=== PATIENT | female | born 1995 | race Caucasian/White ===

== ENCOUNTER 2016-11-03 19:18 | Inpatient (IN) | payer MEDICAID, OTHER ==
[~2016-11-03] VITALS: Ht 157.5 cm; Wt 71.2 kg
[2016-11-03] MEDS ORDERED: MINERAL OIL CONCENTRATE 99.9% 15 ML UDC TOP PRN (19:45)
[2016-11-03] MEDS ORDERED: LACTATED RINGERS 1,000 ML IV SCH (19:45)
[2016-11-03 20:00] VITALS: BP 125/64
[2016-11-03] MEDS: D5 LR IV SOLUTION 1,000 ML IV SCH (20:00)
[2016-11-03] MEDS ORDERED: MISOPROSTOL 100 MCG (CYTOTEC) TAB PO ONE (20:00)
[2016-11-03 20:17] LABS: BASOPHILS % (AUTO) 0 % (0-10); EOSINOPHILS # (AUTO) 0.1 10^3/uL (0.0-0.3); EOSINOPHILS % (AUTO) 1 % (0-10); LYMPHOCYTES # (AUTO) 1.7 X 10^3 (1.0-4.0); LYMPHOCYTES % (AUTO) 16 % (12-44); MEAN CORPUSCULAR HEMOGLOBIN 30 PG (25-34); MEAN CORPUSCULAR HGB CONC 35 G/DL (32-36); MEAN CORPUSCULAR VOLUME 87 FL (80-99); MEAN PLATELET VOLUME 12.2 FL (7.4-10.4); MONOCYTES # (AUTO) 0.9 X 10^3 (0.0-1.0); MONOCYTES % (AUTO) 8 % (0-12); NEUTROPHILS # (AUTO) 8.4 X 10^3 (1.8-7.8); NEUTROPHILS % (AUTO) 76 % (42-75); PLATELET COUNT 225 10^3/uL (130-400); RED BLOOD COUNT 3.73 10^6/uL (4.35-5.85); RED CELL DISTRIBUTION WIDTH 12.6 % (10.0-14.5); WHITE BLOOD COUNT 11.1 10^3/uL (4.3-11.0)
[2016-11-03 20:19] LABS: BILIRUBIN,URINE NEGATIVE (NEGATIVE); KETONES,URINE NEGATIVE (NEGATIVE); LEUKOCYTE ESTERASE ,URINE NEGATIVE (NEGATIVE); NITRITE,URINE NEGATIVE (NEGATIVE); PH,URINE 6.5 (5-9); PROTEIN,URINE NEGATIVE (NEGATIVE); UROBILINOGEN,URINE NORMAL (NORMAL)
[2016-11-03] MEDS ORDERED: PREN-142 PO (20:30)
[2016-11-03] MEDS: CATHETER FLUSH 10 ML SYR IV SCH (22:41)
[2016-11-04] VITALS (54 sets, daily range): BP systolic 94–148; BP diastolic 51–98
[2016-11-04] MEDS ORDERED: MISOPROSTOL 100 MCG (CYTOTEC) TAB PO ONE
[2016-11-04] MEDS ORDERED: HYDROmorphone (DILAUDID) 2 MG/ML VIAL ONE
[2016-11-04] MEDS ORDERED: HYDROmorphone (DILAUDID) 2 MG/ML VIAL IVP PRN (00:15)
[2016-11-04] MEDS: D5 LR IV SOLUTION 1,000 ML IV SCH ×2 (02:57→09:17)
[2016-11-04] MEDS ORDERED: SUFENTA 0.6MCG/ML BUPIVA 0.125 100 ML ONE (04:33)
[2016-11-04] MEDS ORDERED: fentaNYL INJECTION 100 MCG/2 ML AMP ONE (05:13)
[2016-11-04] MEDS ORDERED: BUPIVACAINE 0.25% 30 ML (SENSORCAINE) VIAL ONE (05:13)
[2016-11-04] MEDS ORDERED: LACTATED RINGERS 1,000 ML IV SCH (05:52)
[2016-11-04] MEDS ORDERED: EPIDURAL (SUFENTA 0.6MCG/ML BUPIVA 0.125%) 100 ML BAG EPI PRN (06:00)
[2016-11-04] MEDS ORDERED: diphenhydrAMINE 50 MG/ML INJ (BENADRYL) IV PRN (06:00)
[2016-11-04] MEDS ORDERED: METOCLOPRAMIDE INJ 10 MG/2 ML (REGLAN) IV PRN (06:00)
[2016-11-04] MEDS ORDERED: NALOXONE 0.4 MG/ML 1 ML (NARCAN) VIAL IV PRN ×2 (06:00)
[2016-11-04] MEDS ORDERED: OXYTOCIN/NORMAL SALINE 500 ML IV ONE (07:45)
[2016-11-04] MEDS: ONDANSETRON 4 MG/2 ML (SDV) Z0FRAN IV PRN ×2 (07:52→07:55)
--- NOTE | 2016-11-04 08:59 | History & Physical-OB ---
OB - Chief Complaint & HPI Date/Time Date of Admission: Date of Admission: Nov 03, 2016 at 7:25 pm Time Seen by Provider: 07:30 Chief Complaint/History OB-Reason for Admission/Chief: Induction of Labor Hx : 1 Hx Para: 0 Expected Date of Delivery: Nov 02, 2016 Gestational Age in Weeks: 40 Indication for induction: post dates Admission Nurse Assessment Rev: Yes History of Labs O pos Antibody neg RI RPR NR HBsAg NR HCsAg NR HIV NR GC neg GBS neg Allergies and Home Medications Allergies Coded Allergies: Penicillins (Verified Allergy, Unknown, 11/03/16) Had allergic reaction as a child Home Medications Vit No.124/Iron/FA 1 Each Tablet, 1 EACH PO DAILY, (Reported) OB - History Hx of Present Care: Yes Ultrasounds: Normal mid trimester US Obstetrical Complications: None Medical Complications: None Delivery History Adverse Rxn to Tranfusion: No Patient Past Medical History none Social History/Family History HIV/AIDS: No Recent Infectious Disease Expo: No Sexually Transmitted Disease: No Alcohol Use: Denies Use Recreational Drug Use: No OB - Admission Exam Physical Exam Date Seen by Provider: Nov 04, 2016 Time Seen by Provider: 07:30 Vitals: Vital Signs 11/04/16 11/04/16 11/04/16 03:30 05:38 06:46 Temp 99.0 Pulse 121 Resp 18 B/P (MAP) 127/88 Pulse Ox 99 HEENT: NCAT Heart: Rhythm Normal Lungs: Clear Abdomen: Gravid Extremities: Normal Reflexes: Normal Cervical Dilatation: 1cm Effacement: 75% Station: -1 Heart Rate: 130's Accelerations: Accelerations Present Decelerations: No Decelerations Short Term Variability: Present Care Home Variability: Minimal (3-5) Contractions on Admission: 6-10 Minutes Apart Intensity: Mild Veronica Scoring Tool (Modified) Dilation (cm): 1-2cm (1) Effacement (%): 80-100% (3) Descent/Station: -1,0 (2) Cervix Consistency: Soft (2) Cervix Position: Anterior (2) Subtract 1 point for: Nulliparity (-1) Veronica Score: 9 Labs Laboratory Tests Test 11/03/16 20:00 Range/Units White Blood Count 11.1 H 4.3-11.0 10^3/uL Red Blood Count 3.73 L 4.35-5.85 10^6/uL Hemoglobin 11.3 L 11.5-16.0 G/DL Hematocrit 33 L 35-52 % Mean Corpuscular Volume 87 80-99 FL Mean Corpuscular Hemoglobin 30 25-34 PG Mean Corpuscular Hemoglobin Concent 35 32-36 G/DL Red Cell Distribution Width 12.6 10.0-14.5 % Platelet Count 225 130-400 10^3/uL Mean Platelet Volume 12.2 H 7.4-10.4 FL Neutrophils (%) (Auto) 76 H 42-75 % Lymphocytes (%) (Auto) 16 12-44 % Monocytes (%) (Auto) 8 0-12 % Eosinophils (%) (Auto) 1 0-10 % Basophils (%) (Auto) 0 0-10 % Neutrophils # (Auto) 8.4 H 1.8-7.8 X 10^3 Lymphocytes # (Auto) 1.7 1.0-4.0 X 10^3 Monocytes # (Auto) 0.9 0.0-1.0 X 10^3 Eosinophils # (Auto) 0.1 0.0-0.3 10^3/uL Basophils # (Auto) 0.0 0.0-0.1 10^3/uL Urine Color YELLOW Urine Clarity CLEAR Urine pH 6.5 5-9 Urine Specific [place] 1.010 L 1.016-1.022 Urine Protein NEGATIVE NEGATIVE Urine Glucose (UA) NEGATIVE NEGATIVE Urine Ketones NEGATIVE NEGATIVE Urine Nitrite NEGATIVE NEGATIVE Urine Bilirubin NEGATIVE NEGATIVE Urine Urobilinogen NORMAL NORMAL MG/DL Urine Leukocyte Esterase NEGATIVE NEGATIVE Urine RBC (Auto) NEGATIVE NEGATIVE Urine RBC NONE /HPF Urine WBC NONE /HPF Urine Squamous Epithelial Cells 2-5 /HPF Urine Crystals NONE /LPF Urine Bacteria NONE /HPF Urine Casts NONE /LPF Urine Mucus NEGATIVE /LPF Urine Culture Indicated NO OB - Assessment/Plan/Diagnosis Assessment Assessment: induction of labor Plan Plan: Induction Induction Method: per Misoprostol Protocol Other Plan Misoprostol given overnight, Exam this AM 4-5/80/-1 AROM performed with clear fluid. Pitocin augmentation ordered. Discharge Diagnosis Diagnosis: 21 yo @ 40.2 GBS neg Third trimester transfer of care MIRIAM MACK DO Nov 04, 2016 8:59 am
[2016-11-04] MEDS ORDERED: LIDOCAINE/EPI 1%-1:200,000 (XYLOCAINE) 30 ML VIAL ONE (13:03)
[2016-11-04] MEDS ORDERED: OXYTOCIN/NORMAL SALINE 500 ML IV SCH (14:33)
--- NOTE | 2016-11-04 14:40 | OB Labor & Delivery Record ---
L&D History Date of Service Date of Service: Nov 04, 2016 History Expected Date of Delivery: Nov 02, 2016 Gestational Age in Weeks: 40 Hx : 1 Hx Para: 0 Complications Events: Routine care Operative Indications (Cesarea: N/A-Vaginal Delivery Intrapartal Events: None L&D Stage1 Stage One Onset of Labor - Date: Nov 04, 2016 Monitors and Tracing Monitor Mode: External Heart Rate: 130 Monitor Accelerations: Uniform Monitor Decelerations: None Station: 0 Wooden Barrel Mechanic Variability: Average (6-10) Short Term Variability: Present Presentation: Vertex Vital Signs VS - Last 72 Hours, by Label 11/03/16 11/04/16 11/04/16 11/04/16 20:00 00:40 03:30 05:19 Temp 98.8 98.4 98.4 Pulse 81 79 83 78 Resp 18 18 18 B/P (MAP) 125/64 119/67 117/64 120/69 Pulse Ox 97 11/04/16 11/04/16 11/04/16 11/04/16 05:26 05:29 05:32 05:35 Pulse 88 100 88 86 B/P (MAP) 122/75 129/88 129/80 120/80 Pulse Ox 99 98 97 97 11/04/16 11/04/16 11/04/16 11/04/16 05:38 05:41 05:44 05:47 Temp 99.0 Pulse 95 117 113 103 B/P (MAP) 113/82 112/72 110/70 110/67 Pulse Ox 99 98 99 98 11/04/16 11/04/16 11/04/16 11/04/16 05:50 05:53 06:02 06:05 Pulse 109 83 115 97 B/P (MAP) 104/61 107/63 130/57 148/70 Pulse Ox 98 98 100 100 11/04/16 11/04/16 11/04/16 11/04/16 06:13 06:18 06:28 06:46 Pulse 95 105 105 121 B/P (MAP) 113/81 119/69 104/64 127/88 Pulse Ox 100 99 99 99 11/04/16 11/04/16 11/04/16 11/04/16 07:00 07:15 07:30 07:45 Temp 99.6 Pulse 102 106 103 96 B/P (MAP) 134/76 135/88 136/84 118/77 Pulse Ox 97 99 98 97 O2 Delivery Room Air Room Air Room Air Room Air 11/04/16 11/04/16 11/04/16 11/04/16 08:00 08:15 08:30 08:45 Pulse 80 75 72 74 B/P (MAP) 100/58 105/58 98/55 113/59 Pulse Ox 97 100 99 100 O2 Delivery Room Air Non Rebreather Non Rebreather Non Rebreather O2 Flow Rate 10.00 10.00 10.00 11/04/16 11/04/16 11/04/16 11/04/16 09:00 09:15 09:30 09:45 Pulse 88 78 80 90 B/P (MAP) 105/59 100/66 131/80 145/79 Pulse Ox 98 98 99 99 O2 Delivery Non Rebreather Non Rebreather Non Rebreather Non Rebreather O2 Flow Rate 10.00 10.00 10.00 10.00 11/04/16 11/04/16 11/04/16 11/04/16 10:00 10:15 10:30 10:45 Pulse 86 84 84 63 B/P (MAP) 111/65 113/79 107/64 94/51 Pulse Ox 99 98 100 100 O2 Delivery Non Rebreather Non Rebreather Non Rebreather Non Rebreather O2 Flow Rate 10.00 10.00 10.00 10.00 11/04/16 11/04/16 11/04/16 11/04/16 11:00 11:15 11:30 11:45 Pulse 68 68 68 108 B/P (MAP) 97/55 104/59 104/59 139/91 Pulse Ox 100 99 99 97 O2 Delivery Non Rebreather Non Rebreather Non Rebreather Non Rebreather O2 Flow Rate 10.00 10.00 10.00 10.00 11/04/16 11/04/16 12:00 12:15 Pulse 102 106 B/P (MAP) 137/96 137/95 Pulse Ox 99 99 O2 Delivery Non Rebreather Non Rebreather O2 Flow Rate 10.00 10.00 Rupture of Membranes Spontaneous Ruture of Membrane: No Amniotic Membrane Rupture Time: 0741 Amniotic Membrane Fluid Desc.: Clear Vaginal Bleeding Description: Normal Show Induction/Anesthesia Epidural Cath Placement - Time: 0533 L&D Stage2 Stage Two Stage II Date: Nov 04, 2016 Monitors and Tracing Monitor Mode: External Heart Rate: 130 Monitor Accelerations: Uniform Monitor Decelerations: Variable Wooden Barrel Mechanic Variability: Average (6-10) Short Term Variability: Present Position: Right Occiput Anterior Presentation: Vertex Cord Descript/Complications Cord Vessel Description: 3 Vessels Delivery Type Delivery Method: Spontaneous Vaginal Anterior Shoulder: Right Episiotomy/Perineal Laceration Laceraction(s)/Extensions: No Episiotomy Description: Midline, 3rd degree Location Modifier: Medial Sutures Used: Vicryl (3-0, 2-0 vicryl) Condition of Infant Delivery 1 minute Comment: 8 5 minute Comment: 9 Condition of Condition of : Living Exam: No Observed Abnormalities Resuscitation Resuscitation: N/A - Spontaneous Resp L&D Stage3 Stage Three Stage III Date: Nov 04, 2016 Pictocin Pitocin Administration mu/min: 2 Pitocin ml/hr: 2 Pitocin Administration Comment: 30 mu/min Placenta Delivery Placenta Delivery: Spontaneous Delivery Summary Summary blood loss >1000ml: No Vaginal blood loss >500ml: No 350 mL Attending at delivery: Miriam Mack DO Condition of Delivery Examined: Cervix Examined, Uterus Explored Post Hemorrhage: No Condition of Mother stable Condition of Infant (s) stable MIRIAM MACK DO Nov 04, 2016 2:40 pm
[2016-11-04] MEDS ORDERED: ACET1TAB43 PO (14:42)
[2016-11-04] MEDS ORDERED: BENZ56AE2 TP (14:42)
[2016-11-04] MEDS ORDERED: DOCU100C37 PO (14:42)
[2016-11-04] MEDS ORDERED: FERR-74 PO (14:42)
[2016-11-04] MEDS ORDERED: IBUP-1773 PO (14:42)
--- NOTE | 2016-11-04 14:44 | Discharge Inst-Women's Service ---
Discharge Inst-Women's Serv Depart Medication/Instructions New, Converted or Re-Newed RX: RX on Chart Consults/Follow Up Additional Follow Up: Yes Orders/Referrals Dr. Mack in 6 weeks Activity Activity: Activity as Tolerated Driving Instructions: No Driving for 1 Week NO SMOKING: NO SMOKING Nothing Inside Vagina: No Douching, No [place], No Tampons Diet Discharge Diet: No Restrictions Symptoms to Report to : Bleeding Excessive, Pain Increased, Fever Over 101 Degrees F, Vaginal Bleeding Increase, Questions/Concerns For Any Problems or Questions: Contact Your Physician Skin/Wound Care Bathing Instructions: Shower (x 2 weeks) MIRIAM MACK DO Nov 04, 2016 2:44 pm
[2016-11-04] MEDS ORDERED: TETANUS,DIPTH,PERTUSS P/F (BOOSTRIX) 0.5 ML VIAL IM ONE (14:45)
[2016-11-04] MEDS ORDERED: MEASLES,MUMPS,RUBELLA 1 EA INJ SQ ONE (14:45)
[2016-11-04] MEDS ORDERED: WITCH HAZEL(TUCKS) 40 EA JAR TOP PRN (14:45)
[2016-11-04] MEDS ORDERED: APAP 300 MG/CODEINE 30 MG (TYLENOL #3) TAB PO PRN (14:45)
[2016-11-04] MEDS ORDERED: DIBUCAINE (NUPERCAINAL) 1% OINT 30 GM TOP PRN (14:45)
[2016-11-04] MEDS ORDERED: BENZOCAINE/MENTHOL (DERMOPLAST) 56 ML CAN TP PRN (14:45)
[2016-11-04] MEDS: IBUPROFEN 600 MG (MOTRIN) TAB PO SCH ×2 (16:05→22:10)
[2016-11-04] MEDS: DOCUSATE SODIUM 100 MG (COLACE) CAP PO SCH (20:49)
[2016-11-04] MEDS: CATHETER FLUSH 10 ML SYR IV SCH (20:49)
[2016-11-05 00:39] VITALS: BP 91/57
[2016-11-05] MEDS: IBUPROFEN 600 MG (MOTRIN) TAB PO SCH ×3 (04:08→15:56)
[2016-11-05 04:24] VITALS: BP 118/81
[2016-11-05 06:31] LABS: BASOPHILS % (AUTO) 0 % (0-10); EOSINOPHILS # (AUTO) 0.1 10^3/uL (0.0-0.3); EOSINOPHILS % (AUTO) 1 % (0-10); LYMPHOCYTES # (AUTO) 1.7 X 10^3 (1.0-4.0); LYMPHOCYTES % (AUTO) 13 % (12-44); MEAN CORPUSCULAR HEMOGLOBIN 29 PG (25-34); MEAN CORPUSCULAR HGB CONC 33 G/DL (32-36); MEAN CORPUSCULAR VOLUME 90 FL (80-99); MEAN PLATELET VOLUME 11.6 FL (7.4-10.4); MONOCYTES # (AUTO) 1.2 X 10^3 (0.0-1.0); MONOCYTES % (AUTO) 9 % (0-12); NEUTROPHILS % (AUTO) 77 % (42-75); PLATELET COUNT 156 10^3/uL (130-400); RED BLOOD COUNT 2.69 10^6/uL (4.35-5.85); RED CELL DISTRIBUTION WIDTH 12.6 % (10.0-14.5); WHITE BLOOD COUNT 12.9 10^3/uL (4.3-11.0)
[2016-11-05] MEDS: CATHETER FLUSH 10 ML SYR IV SCH ×3 (06:48→15:23)
[2016-11-05] MEDS ORDERED: PRENATAL VITAMIN 1 EA TAB PO SCH (07:00)
[2016-11-05 08:00] VITALS: BP 95/61
[2016-11-05] MEDS: DOCUSATE SODIUM 100 MG (COLACE) CAP PO SCH (08:59)
[2016-11-05] MEDS ORDERED: FERROUS SULF 325 MG (IRON) TAB PO SCH ×2 (09:00→10:45)
--- NOTE | 2016-11-05 10:35 | Postpartum Progress Note ---
Note Note Day # 1 s/p , 3rd degree laceration, acute blood loss anemia Subjective: Patient is without complaints. Ambulating, voiding. Tolerating a regular diet without nausea or vomiting. Normal lochia. Pain is well controlled with oral antiinflammatories. breast feeding. she is not symptomatic (no dizziness) and vss. Objective: Vital Sign - Last 12Hours 11/05/16 11/05/16 11/05/16 00:39 04:24 08:00 Temp 96.0 95.4 96.5 Pulse 77 69 74 Resp 20 18 18 B/P (MAP) 91/57 118/81 95/61 Pulse Ox 99 97 98 O2 Delivery Room Air Room Air Room Air Intake and Output 11/05/16 00:00 Intake Total 1625 ml Balance 1625 ml Laboratory Tests Test 11/05/16 06:18 Range/Units White Blood Count 12.9 H 4.3-11.0 10^3/uL Red Blood Count 2.69 L 4.35-5.85 10^6/uL Hemoglobin 7.9 #L 11.5-16.0 G/DL Hematocrit 24 L 35-52 % Mean Corpuscular Volume 90 80-99 FL Mean Corpuscular Hemoglobin 29 25-34 PG Mean Corpuscular Hemoglobin Concent 33 32-36 G/DL Red Cell Distribution Width 12.6 10.0-14.5 % Platelet Count 156 130-400 10^3/uL Mean Platelet Volume 11.6 H 7.4-10.4 FL Neutrophils (%) (Auto) 77 H 42-75 % Lymphocytes (%) (Auto) 13 12-44 % Monocytes (%) (Auto) 9 0-12 % Eosinophils (%) (Auto) 1 0-10 % Basophils (%) (Auto) 0 0-10 % Neutrophils # (Auto) 10.0 H 1.8-7.8 X 10^3 Lymphocytes # (Auto) 1.7 1.0-4.0 X 10^3 Monocytes # (Auto) 1.2 H 0.0-1.0 X 10^3 Eosinophils # (Auto) 0.1 0.0-0.3 10^3/uL Basophils # (Auto) 0.0 0.0-0.1 10^3/uL Laboratory Tests Test 11/03/16 20:00 11/05/16 06:18 Range/Units White Blood Count 11.1 H 12.9 H 4.3-11.0 10^3/uL Red Blood Count 3.73 L 2.69 L 4.35-5.85 10^6/uL Hemoglobin 11.3 L 7.9 #L 11.5-16.0 G/DL Hematocrit 33 L 24 L 35-52 % Mean Corpuscular Volume 87 90 80-99 FL Mean Corpuscular Hemoglobin 30 29 25-34 PG Mean Corpuscular Hemoglobin Concent 35 33 32-36 G/DL Red Cell Distribution Width 12.6 12.6 10.0-14.5 % Platelet Count 225 156 130-400 10^3/uL Mean Platelet Volume 12.2 H 11.6 H 7.4-10.4 FL Neutrophils (%) (Auto) 76 H 77 H 42-75 % Lymphocytes (%) (Auto) 16 13 12-44 % Monocytes (%) (Auto) 8 9 0-12 % Eosinophils (%) (Auto) 1 1 0-10 % Basophils (%) (Auto) 0 0 0-10 % Neutrophils # (Auto) 8.4 H 10.0 H 1.8-7.8 X 10^3 Lymphocytes # (Auto) 1.7 1.7 1.0-4.0 X 10^3 Monocytes # (Auto) 0.9 1.2 H 0.0-1.0 X 10^3 Eosinophils # (Auto) 0.1 0.1 0.0-0.3 10^3/uL Basophils # (Auto) 0.0 0.0 0.0-0.1 10^3/uL Urine Color YELLOW Urine Clarity CLEAR Urine pH 6.5 5-9 Urine Specific [place] 1.010 L 1.016-1.022 Urine Protein NEGATIVE NEGATIVE Urine Glucose (UA) NEGATIVE NEGATIVE Urine Ketones NEGATIVE NEGATIVE Urine Nitrite NEGATIVE NEGATIVE Urine Bilirubin NEGATIVE NEGATIVE Urine Urobilinogen NORMAL NORMAL MG/DL Urine Leukocyte Esterase NEGATIVE NEGATIVE Urine RBC (Auto) NEGATIVE NEGATIVE Urine RBC NONE /HPF Urine WBC NONE /HPF Urine Squamous Epithelial Cells 2-5 /HPF Urine Crystals NONE /LPF Urine Bacteria NONE /HPF Urine Casts NONE /LPF Urine Mucus NEGATIVE /LPF Urine Culture Indicated NO Physical Exam: General - Alert and oriented, no apparent distress Abdomen - Soft, appropriately tender to palpation, non-distended, fundus firm at umbilicus Extremities - no edema, negative Per's bilaterally Assessment: 1 post- day # 1, status post spontaneous vaginal delivery, 3rd degree laceration, stable. Recovering well, hemodynamically stable Acute blood loss anemia, stable on oral meds Plan: Routine care. Encourage breast feeding. Encourage ambulation. Ferrous sulfate supplementation. Plan for discharge today Vitals - Labs Vital Signs - I&O Vital Signs Date Time Temp Pulse Resp B/P (MAP) Pulse Ox O2 Delivery O2 Flow Rate FiO2 11/05/16 08:00 96.5 74 18 95/61 98 Room Air 11/05/16 04:24 95.4 69 18 118/81 97 Room Air 11/05/16 00:39 96.0 77 20 91/57 99 Room Air 11/04/16 20:52 97.6 78 20 124/76 98 Room Air 11/04/16 16:00 99.7 85 123/71 11/04/16 15:30 88 116/59 11/04/16 15:15 100.2 126 126/83 11/04/16 15:00 95 122/74 11/04/16 14:45 100.4 94 120/71 11/04/16 14:30 99.9 100 128/80 11/04/16 14:15 100.0 89 140/79 11/04/16 14:00 99.8 86 140/98 11/04/16 13:15 114 128/89 11/04/16 13:00 131 128/93 11/04/16 12:45 112 121/92 11/04/16 12:30 101 139/87 11/04/16 12:15 106 137/95 99 Non Rebreather 10.00 11/04/16 12:00 102 137/96 99 Non Rebreather 10.00 11/04/16 11:45 108 139/91 97 Non Rebreather 10.00 11/04/16 11:30 68 104/59 99 Non Rebreather 10.00 11/04/16 11:15 68 104/59 99 Non Rebreather 10.00 11/04/16 11:00 68 97/55 100 Non Rebreather 10.00 11/04/16 10:45 63 94/51 100 Non Rebreather 10.00 I & O 11/05/16 07:00 Intake Total 2625 ml Balance 2625 ml Labs Laboratory Tests 11/05/16 06:18: White Blood Count 12.9H, Red Blood Count 2.69L, Hemoglobin 7.9#L, Hematocrit 24L , Mean Corpuscular Volume 90, Mean Corpuscular Hemoglobin 29, Mean Corpuscular Hemoglobin Concent 33, Red Cell Distribution Width 12.6, Platelet Count 156, Mean Platelet Volume 11.6H, Neutrophils (%) (Auto) 77H, Lymphocytes (%) (Auto) 13, Monocytes (%) (Auto) 9, Eosinophils (%) (Auto) 1, Basophils (%) (Auto) 0, Neutrophils # (Auto) 10.0H, Lymphocytes # (Auto) 1.7, Monocytes # (Auto) 1.2H, Eosinophils # (Auto) 0.1, Basophils # (Auto) 0.0 EMILY KIM DO Nov 05, 2016 10:35
[2016-11-05 12:00] VITALS: BP 107/70
--- NOTE | 2016-11-05 13:13 | Anesthesia-Regional Post-Op ---
Regional Patient Condition Mental Status: Alert, Oriented x3 Circulation: Same as Pre-Op Headache: Absent Sensation: Full Recovery Motor Block: Absent Post Op Complications Complications None Follow Up Care/Instructions Patient Instructions None needed. Anesthesia/Patient Condition Patient is doing well, no complaints, stable vital signs, no apparent adverse anesthesia problems. No complications reported per nursing. PALAK ALVARADO CRNA Nov 05, 2016 13:13
== END 2016-11-05 17:50 | disposition home or self-care (01) | DRG 775 ==
LOC: WSo 19:18 → LDRP 19:19 → WSo 19:25 → LDRP 11-04 16:10
PROVIDERS: ADMIT Obstetrics & Gynecology; ATTEND Obstetrics & Gynecology
PROC: 10E0XZZ Delivery of Products of Conception, External Approach (ICD-10-PCS; principal; 2016-11-04)
PROC: 0DQR0ZZ Repair Anal Sphincter, Open Approach (ICD-10-PCS; 2016-11-04)
DX: O48.0 Post-term pregnancy (principal); O70.20 Third degree perineal laceration during delivery, unspecified; O99.03 Anemia complicating the puerperium; D62 Acute posthemorrhagic anemia; Z3A.40 40 weeks gestation of pregnancy; Z37.0 Single live birth
CPT/HCPCS: 36415; 81000; 85025; 86850; 86900; 86901

== ENCOUNTER → 2019-11-12 | Outpatient (CLI) | payer BC, MEDICAID ==
[~2019-11-12] MED LIST: ACET1TAB43 PO; BENZ56AE2 TP; DOCU100C37 PO; FERR325T18 PO; IBUP-1773 PO; PREN-142 PO
--- NOTE | 2019-11-12 16:27 | Diagnostic Imaging Report ---
INDICATION: Undergoing anatomical assessment during normal . TECHNIQUE: Multiple real-time grayscale images were obtained over the gravid uterus. COMPARISON: None FINDINGS: A single viable intrauterine is currently in variable presentation. There is a normal amount of amniotic fluid, index at 13.72 cm. Placenta is along the anterior aspect and without previa. Cervical length is 3.9 cm. Visualized anatomical structures including the kidneys, bladder, stomach, intracranial structures, four-chamber heart, three-vessel cord and insertion site, as well as spine are unremarkable. Maternal adnexa not imaged. Biometrical measurements are as follows: Biparietal 4.66 cm, age 20 weeks 1 days. Head circumference 17.33 cm, age 20 weeks 0 days. Abdominal circumference 15.11 cm, age 20 weeks 3 days. Femur length 3.18 cm, age 20 weeks 0 days. Sonographic estimate age: 20 weeks 1 days. Sonographic estimated date of delivery: 03/30/2020. Estimated Weight: 333 gm (+/- 49 gm). LMP percentile: 52%. heart rate: 140 beats per minute. number: 1 of 1. IMPRESSION: 1. Single viable intrauterine , currently in variable presentation. Sonographic estimated age at 20 weeks 1 day for an estimated date of delivery of March 30, 2020. No abnormalities demonstrated at this time. Dictated by: Dictated on workstation # [id number]
== END ==
LOC: RAD 12:48
PROVIDERS: ATTEND Obstetrics & Gynecology
DX: Z34.92 Encounter for supervision of normal pregnancy, unspecified, second trimester (principal); Z3A.20 20 weeks gestation of pregnancy
CPT/HCPCS: 76805

== ENCOUNTER 2020-01-17 09:06 | Outpatient (CLI) | payer BC ==
[~2020-01-17] VITALS: Ht 160 cm; Wt 67.9 kg
--- NOTE | 2020-01-17 09:06 | NUR ---
ENID ESCALANTE presented to unit via from ED, accompanied by self, with c/o SPOTTING. ENID ESCALANTE weighed, gowned, voided, and to bed. EFLOPEZ and TOCO applied, VS taken. ENID ESACLANTE oriented to bed controls, call light, TV, heat, and A/C controls.
[2020-01-17 09:30] VITALS: BP 119/60
[2020-01-17 10:21] LABS: BASOPHILS % (AUTO) 0 % (0-10); EOSINOPHILS # (AUTO) 0.1 10^3/uL (0.0-0.3); EOSINOPHILS % (AUTO) 1 % (0-10); HEMATOCRIT 33 % (35-52); HEMOGLOBIN 11.5 g/dL (11.5-16.0); LYMPHOCYTES # (AUTO) 1.3 10^3/uL (1.0-4.0); LYMPHOCYTES % (AUTO) 15 % (12-44); MEAN CORPUSCULAR HEMOGLOBIN 32 pg (25-34); MEAN CORPUSCULAR HGB CONC 34 g/dL (32-36); MEAN CORPUSCULAR VOLUME 93 fL (80-99); MEAN PLATELET VOLUME 10.5 fL (9.0-12.2); MONOCYTES # (AUTO) 0.6 10^3/uL (0.0-1.0); MONOCYTES % (AUTO) 7 % (0-12); NEUTROPHILS # (AUTO) 6.7 10^3/uL (1.8-7.8); NEUTROPHILS % (AUTO) 77 % (42-75); PLATELET COUNT 184 10^3/uL (130-400); WHITE BLOOD COUNT 8.7 10^3/uL (4.3-11.0)
[2020-01-17 10:37] LABS: ALANINE AMINOTRANSFERASE 13 U/L (0-55); ALBUMIN 3.3 GM/DL (3.2-4.5); ALKALINE PHOSPHATASE 69 U/L (40-136); BILIRUBIN,TOTAL 0.3 MG/DL (0.1-1.0); BUN/CREATININE RATIO 8; CALCIUM 8.3 MG/DL (8.5-10.1); CARBON DIOXIDE 22 MMOL/L (21-32); CHLORIDE 106 MMOL/L (98-107); CREATININE SERUM 0.59 MG/DL (0.60-1.30); GFR ESTIMATED > 60; GLUCOSE 79 MG/DL (70-105); POTASSIUM 3.6 MMOL/L (3.6-5.0); SODIUM 136 MMOL/L (135-145); TOTAL PROTEIN 6.1 GM/DL (6.4-8.2)
--- NOTE | 2020-01-17 10:55 | NUR ---
EFM removed. sono at bedside for ordered test. patient voiced no concerns at this time.
--- NOTE | 2020-01-17 12:30 | NUR ---
ultrasound called this RN with sono results.
--- NOTE | 2020-01-17 12:35 | NUR ---
dr anguiano notified of lab and sono results. new orders received.
--- NOTE | 2020-01-17 12:40 | NUR ---
out of ws via ambulation to home self care.
--- NOTE | 2020-01-17 13:06 | Diagnostic Imaging Report ---
INDICATION: Vaginal spotting with fall. TECHNIQUE: The fetus was observed by the supervisor home restoration service for purposes of a nonstress biophysical profile evaluation. FINDINGS: Intrauterine is currently in a cephalic presentation. The placenta is along the anterior aspect without evidence for previa. cardiac activity at 125 beats per minute. Normal amount of amniotic fluid with an index at 13.8 by cm. Cervical length 4 cm. Biophysical Profile Scoring: breathin Body movement: 2 tone: 2 Amniotic fluid: 2 Total BPP Score: 8/8 IMPRESSION: 1. Normal biophysical profile score. Dictated by: Dictated on workstation # [id number]
--- NOTE | 2020-01-20 08:23 | Physician Query-Final Dx ---
Clinic Account Progress/Dx Physician Query: Please give diagnosis Please include # weeks gestation Date of Service Jan 17, 2020 at 09:06 EMANUEL MOLINA Jan 20, 2020 08:23
== END 2020-01-17 12:40 | disposition home IV services (08) ==
LOC: WSo 09:06 → LDRP 09:06 → WSo 12:40
PROVIDERS: ATTEND Obstetrics & Gynecology
DX: O26.859 Spotting complicating pregnancy, unspecified trimester (principal); Z3A.00 Weeks of gestation of pregnancy not specified; W19.XXXA Unspecified fall, initial encounter
CPT/HCPCS: 76819; 80053; 85025; G0463; 36415; 99214

== ENCOUNTER 2020-03-26 01:33 | Inpatient (IN) | payer BC ==
[2020-03-26] VITALS (61 sets, daily range): BP systolic 97–229; BP diastolic 55–146
[~2020-03-26] VITALS: Ht 160 cm; Wt 70.9 kg
--- NOTE | 2020-03-26 06:10 | NUR ---
ENID ESCALANTE presented to unit via ambulatory from ED, accompanied by s/o, with c/o INDUCTION 39 05/03. ENID ESCALANTE weighed, gowned, voided, and to bed. EFHM and TOCO applied, VS taken. ENID ESCALANTE oriented to bed controls, call light, TV, heat, and A/C controls.
[2020-03-26] MEDS ORDERED: OXYTOCIN PRE-MIX DRIP 500 ML IV SCH ×2 (06:30→22:30)
[2020-03-26] MEDS: D5 LR IV SOLUTION 1,000 ML IV SCH ×2 (06:52→14:52)
[2020-03-26 07:05] LABS: BASOPHILS % (AUTO) 0 % (0-10); EOSINOPHILS # (AUTO) 0.1 10^3/uL (0.0-0.3); EOSINOPHILS % (AUTO) 1 % (0-10); HEMATOCRIT 36 % (35-52); HEMOGLOBIN 12.3 g/dL (11.5-16.0); LYMPHOCYTES # (AUTO) 2.4 10^3/uL (1.0-4.0); LYMPHOCYTES % (AUTO) 25 % (12-44); MEAN CORPUSCULAR HEMOGLOBIN 31 pg (25-34); MEAN CORPUSCULAR HGB CONC 34 g/dL (32-36); MEAN CORPUSCULAR VOLUME 92 fL (80-99); MONOCYTES # (AUTO) 0.9 10^3/uL (0.0-1.0); MONOCYTES % (AUTO) 9 % (0-12); NEUTROPHILS # (AUTO) 6.3 10^3/uL (1.8-7.8); NEUTROPHILS % (AUTO) 64 % (42-75); PLATELET COUNT 197 10^3/uL (130-400); WHITE BLOOD COUNT 9.9 10^3/uL (4.3-11.0)
--- NOTE | 2020-03-26 07:54 | History & Physical-OB ---
OB - Chief Complaint & HPI Date/Time Date of Admission: Date of Admission: Mar 26, 2020 at 06:09 Date seen by a Provider: Mar 26, 2020 Time Seen by a Provider: 07:35 Chief Complaint/History OB-Reason for Admission/Chief: Induction of Labor Hx : 2 Hx Para: 1 Expected Date of Delivery: Mar 31, 2020 Gestational Age in Weeks: 39 Gestational Age in Days: 2 Indication for induction: maternal discomfort Admission Nurse Assessment Rev: Yes Allergies and Home Medications Allergies Coded Allergies: Penicillins (Verified Allergy, Unknown, 11/03/16) Had allergic reaction as a child Home Medications Vit No.124/Iron/FA 1 Each Tablet, 1 EACH PO DAILY, (Reported) Patient Home Medication List Home Medication List Reviewed: Yes OB - History Hx of Present Care: Yes Ultrasounds: Normal mid trimester US Obstetrical Complications: None Medical Complications: None Delivery History Adverse Rxn to Tranfusion: No Patient Past Medical History none Social History/Family History HIV/AIDS: No Sexually Transmitted Disease: No 2nd Hand Smoke Exposure: No OB - Admission Exam Physical Exam Vitals: Vital Signs 03/26/20 03/26/20 06:53 07:00 Temp 36.4 Pulse 89 Resp 18 B/P (MAP) 105/67 (80) Pulse Ox 99 O2 Delivery Room Air HEENT: NCAT Heart: Rhythm Normal Lungs: Clear Abdomen: Gravid Extremities: Normal Reflexes: Normal Cervical Dilatation: 2cm Effacement: 75% Station: -1 Membranes: Intact Heart Rate: 130's Accelerations: Accelerations Present Decelerations: No Decelerations Short Term Variability: Present Home Health Attendant Variability: Average (6-25) Contractions on Admission: 6-10 Minutes Apart Intensity: Mild Veroniac Scoring Tool (Modified) Dilation (cm): 1-2cm (1) Effacement (%): 51-79% (2) Descent/Station: -1,0 (2) Cervix Consistency: Soft (2) Cervix Position: Anterior (2) Add 1 point for: Each previous vaginal delivery (1) Veronica Score: 10 Labs Laboratory Tests Test 03/26/20 06:35 03/26/20 06:40 Range/Units White Blood Count 9.9 4.3-11.0 10^3/uL Red Blood Count 3.92 3.80-5.11 10^6/uL Hemoglobin 12.3 11.5-16.0 g/dL Hematocrit 36 35-52 % Mean Corpuscular Volume 92 80-99 fL Mean Corpuscular Hemoglobin 31 25-34 pg Mean Corpuscular Hemoglobin Concent 34 32-36 g/dL Red Cell Distribution Width 12.9 10.0-14.5 % Platelet Count 197 130-400 10^3/uL Mean Platelet Volume 11.0 9.0-12.2 fL Immature Granulocyte % (Auto) 1 % Neutrophils (%) (Auto) 64 42-75 % Lymphocytes (%) (Auto) 25 12-44 % Monocytes (%) (Auto) 9 0-12 % Eosinophils (%) (Auto) 1 0-10 % Basophils (%) (Auto) 0 0-10 % Neutrophils # (Auto) 6.3 1.8-7.8 10^3/uL Lymphocytes # (Auto) 2.4 1.0-4.0 10^3/uL Monocytes # (Auto) 0.9 0.0-1.0 10^3/uL Eosinophils # (Auto) 0.1 0.0-0.3 10^3/uL Basophils # (Auto) 0.0 0.0-0.1 10^3/uL Immature Granulocyte # (Auto) 0.1 0.0-0.1 10^3/uL OB - Assessment/Plan/Diagnosis Assessment Assessment: induction of labor Admission Dx 24 yo @ 39.2 Elective IOL GBS neg Admission Status: Inpatient Order (span 2 midnights) Reason for Inpatient Admission: IOL at term 39 weeks Plan Plan: Induction Induction Method: per Pitocin Protocol (and AROM) MIRIAM MACK DO Mar 26, 2020 07:54
[2020-03-26] MEDS ORDERED: fentaNYL 2 mcg/ml BUPIVA 0.125 100 ML ONE (11:02)
[2020-03-26] MEDS ORDERED: BUPIVACAINE 0.25% 30 ML (SENSORCAINE) VIAL ONE (12:04)
[2020-03-26] MEDS ORDERED: LIDOCAINE PF 2% 5 ML (XYLOCAINE) VIAL ONE (12:04)
[2020-03-26] MEDS ORDERED: fentaNYL INJECTION 100 MCG/2 ML AMP ONE (12:04)
--- NOTE | 2020-03-26 12:08 | NUR ---
1208 Edouard REED CRNA here for epidural placement. Procedure explained, consent reviewed and signed by anesthesia. Questions answered to patient's satisfaction. Time out taken to verify correct patient/procedure. 1211 Patient up to side of bed, assisted into sitting position. 1215 Betadine prep done x3 and sterile drape applied. 1217 Local done, see anesthesia record. 1223 Test dose given, see anesthesia record for drug and dosage. Epidural catheter secured in place. Epidural placement complete. 1227 Assisted back into bed, monitors adjusted. Epidural dosed, see anesthesia record. Epidural infusing @ 12cc/hr stated per pump; see EMAR for further. Patient tolerated procedure well.
[2020-03-26] MEDS ORDERED: ONDANSETRON 4 MG/2 ML (SDV) Z0FRAN ONE (12:31)
[2020-03-26] MEDS: ONDANSETRON 4 MG/2 ML (SDV) Z0FRAN IV PRN ×2 (12:37→17:03)
[2020-03-26] MEDS: EPIDURAL (fentaNYL 2 MCG/ML BUPIVA 0.125%)100 ML BAG EPI PRN ×2 (12:38→18:48)
[2020-03-26] MEDS ORDERED: diphenhydrAMINE 50 MG/ML INJ (BENADRYL) IV PRN (12:45)
[2020-03-26] MEDS ORDERED: NALOXONE 0.4 MG/ML 1 ML (NARCAN) VIAL IV PRN (12:45)
[2020-03-26] MEDS ORDERED: LACTATED RINGERS 1,000 ML IV SCH (12:45)
[2020-03-26] MEDS ORDERED: PROMETHAZINE INJ 25 MG/ML (PHENERGAN) AMP ONE (20:46)
[2020-03-26] MEDS ORDERED: PROMETHAZINE INJ 25 MG/ML (PHENERGAN) AMP IVP ONE (21:00)
[2020-03-26] MEDS ORDERED: LIDOCAINE/EPI 2% 1:200,00 (XYLOCAINE) 10 ML VIAL ONE (21:45)
[2020-03-26] MEDS ORDERED: TETANUS,DIPTH,PERTUSS P/F (BOOSTRIX) 0.5 ML VIAL IM ONE (22:30)
[2020-03-26] MEDS ORDERED: BENZOCAINE/MENTHOL (DERMOPLAST) 60 ML CAN TP PRN (22:30)
[2020-03-26] MEDS ORDERED: HYDROcodone/APAP 5 MG/325 MG (LORTAB) TAB PO PRN (22:30)
[2020-03-26] MEDS ORDERED: DIBUCAINE (NUPERCAINAL) 1% OINT 30 GM TOP PRN (22:30)
[2020-03-26] MEDS ORDERED: MEASLES,MUMPS,RUBELLA 1 EA INJ SQ ONE (22:30)
[2020-03-26] MEDS ORDERED: WITCH HAZEL(TUCKS) 40 EA JAR TOP PRN (22:30)
--- NOTE | 2020-03-26 22:32 | OB Labor & Delivery Record ---
L&D History Date of Service Date of Service: Mar 26, 2020 History Expected Date of Delivery: Mar 31, 2020 Gestational Age in Weeks: 39 Hx : 2 Hx Para: 1 Complications Events: Routine care Operative Indications (Cesarea: N/A-Vaginal Delivery Intrapartal Events: None L&D Stage1 Stage One Onset of Labor - Date: Mar 26, 2020 Monitors and Tracing Monitor Mode: External Heart Rate: 130 Station: -1 Long-Term Variability: Average (6-10) Short Term Variability: Present Presentation: Vertex Vital Signs VS - Last 72 Hours, by Label 03/26/20 03/26/20 03/26/20 03/26/20 06:53 07:00 07:52 08:21 Temp 36.4 36.4 36.5 Pulse 89 89 76 Resp 18 18 18 B/P (MAP) 105/67 (80) 113/76 (88) Pulse Ox 99 99 O2 Delivery Room Air Room Air Room Air 03/26/20 03/26/20 03/26/20 03/26/20 08:32 09:07 09:33 09:48 Pulse 75 80 88 76 Resp 18 18 18 18 B/P (MAP) 106/67 (80) 111/56 (74) 109/67 (81) 112/67 (82) O2 Delivery Room Air Room Air Room Air Room Air 03/26/20 03/26/20 03/26/20 03/26/20 10:03 10:18 10:32 10:49 Temp 36.4 Pulse 75 78 73 75 Resp 18 18 18 18 B/P (MAP) 104/63 (77) 109/65 (80) 112/65 (81) 116/81 (93) O2 Delivery Room Air Room Air Room Air Room Air 03/26/20 03/26/20 03/26/20 03/26/20 10:55 11:11 11:18 11:50 Temp 36.5 Pulse 75 71 78 Resp 18 18 18 B/P (MAP) 109/68 (82) 118/71 (87) 108/68 (81) O2 Delivery Room Air Room Air Room Air 03/26/20 03/26/20 03/26/20 03/26/20 12:15 12:18 12:22 12:24 Pulse 93 85 95 83 Resp 18 18 18 18 B/P (MAP) 119/64 (82) 123/86 (98) 115/67 (83) 118/60 (79) Pulse Ox 99 99 95 O2 Delivery Room Air Room Air Room Air Room Air 03/26/20 03/26/20 03/26/20 03/26/20 12:31 12:33 12:36 12:38 Pulse 87 86 106 93 Resp 18 18 18 18 B/P (MAP) 101/56 (71) 103/58 (73) 135/80 (98) 115/70 (85) Pulse Ox 93 O2 Delivery Room Air Room Air Room Air Room Air 03/26/20 03/26/20 03/26/20 03/26/20 12:40 12:42 12:46 12:49 Pulse 91 82 89 70 Resp 18 18 18 18 B/P (MAP) 121/58 (79) 111/59 (76) 118/82 (94) 125/61 (82) O2 Delivery Room Air Room Air Room Air Room Air 03/26/20 03/26/20 03/26/20 03/26/20 12:52 12:54 13:10 13:40 Pulse 76 66 75 80 Resp 18 18 18 18 B/P (MAP) 108/64 (79) 107/62 (77) 107/69 (82) 103/59 (74) O2 Delivery Room Air Room Air Room Air Room Air 03/26/20 03/26/20 03/26/20 03/26/20 13:55 14:10 14:25 14:40 Temp 36.2 Pulse 77 81 80 Resp 18 18 18 B/P (MAP) 106/67 (80) 97/55 (69) 99/55 (70) O2 Delivery Room Air Room Air Room Air 03/26/20 03/26/20 03/26/20 03/26/20 14:57 15:10 15:25 15:40 Pulse 80 74 72 79 Resp 18 18 18 18 B/P (MAP) 104/59 (74) 101/59 (73) 105/62 (76) 112/68 (83) O2 Delivery Room Air Room Air Room Air Room Air 03/26/20 03/26/20 03/26/20 03/26/20 15:55 16:10 16:25 16:55 Pulse 100 100 101 113 Resp 18 18 18 18 B/P (MAP) 120/70 (87) 118/80 (93) 126/76 (93) 139/64 (89) O2 Delivery Room Air Room Air Room Air Room Air 03/26/20 03/26/20 03/26/20 03/26/20 17:07 17:40 17:55 18:10 Temp 36.2 37.0 Pulse 117 115 111 Resp 18 18 18 B/P (MAP) 114/74 (87) 128/85 (99) 124/81 (95) O2 Delivery Room Air Room Air Room Air 03/26/20 03/26/20 03/26/20 03/26/20 18:25 18:40 18:51 18:56 Temp 36.7 Pulse 110 123 116 Resp 18 18 18 B/P (MAP) 117/72 (87) 118/71 (87) 116/70 (85) O2 Delivery Room Air Room Air Room Air 03/26/20 03/26/20 03/26/20 03/26/20 19:15 19:30 19:45 20:00 Temp 36.5 Pulse 113 102 109 112 Resp 18 18 18 18 B/P (MAP) 119/56 (77) 116/70 (85) 110/59 (76) 130/76 (94) O2 Delivery Room Air Room Air Room Air Room Air 03/26/20 03/26/20 03/26/20 03/26/20 20:15 20:30 20:45 21:00 Pulse 103 100 112 111 Resp 18 18 18 18 B/P (MAP) 121/71 (88) 127/83 (98) 110/69 (83) 106/72 (83) O2 Delivery Room Air Room Air Room Air Room Air Rupture of Membranes Spontaneous Ruture of Membrane: No Amniotic Membrane Rupture Time: 733 Amniotic Membrane Fluid Desc.: Clear Vaginal Bleeding Description: Normal Show Induction/Anesthesia Epidural Cath Placement - Time: 1222 Progress/Notes Patient admitted for IOL, pitocin augmentation used to max dose of 18 mu, and arom performed. She progressed to complete and +1 station with epidural analgesia. L&D Stage2 Stage Two Stage II Date: Mar 26, 2020 Monitors and Tracing Monitor Mode: External Heart Rate: 130 Monitor Accelerations: Uniform Monitor Decelerations: Variable Long-Term Variability: Average (6-10) Short Term Variability: Present Position: Right Occiput Anterior Presentation: Vertex Cord Descript/Complications Cord Vessel Description: 3 Vessels Delivery Type Infant Delivery Method: Spontaneous Vaginal Anterior Shoulder: Left Episiotomy/Perineal Laceration Laceraction(s)/Extensions: Yes Episiotomy Description: Midline Degree (describe repair) midline episiotomy and left clitoral to labial laceration repaired using 3-09 rapide in usual fashion. Condition of Delivery 1 minute Comment: 8 5 minute Comment: 9 Notes Live female infant weight 6lbs 12 oz. Condition of Infant Condition of Infant: Living Exam: No Observed Abnormalities Resuscitation Resuscitation: N/A - Spontaneous Resp L&D Stage3 Stage Three Stage III Date: Mar 26, 2020 Pictocin Pitocin Administration mu/min: 18 Pitocin ml/hr: 18 Pitocin Administration Comment: 30 mu wide open at delivery of placenta Placenta Delivery Placenta Delivery: Spontaneous Delivery Summary Summary Estimated blood loss (mL): 350 Attending at delivery: Miriam Mack DO Condition of Delivery Examined: Cervix Examined, Uterus Explored Post Hemorrhage: No Condition of Mother stable Condition of Infant (s) stable MIRIAM MACK DO Mar 26, 2020 22:32
[2020-03-26] MEDS ORDERED: LIDOCAINE 2% 20 ML (XYLOCAINE) VIAL INJ ONE (23:30)
[2020-03-27] VITALS (10 sets, daily range): BP systolic 93–111; BP diastolic 50–74
[2020-03-27] MEDS: IBUPROFEN 600 MG (MOTRIN) TAB PO SCH ×4 (01:06→20:58)
[2020-03-27] MEDS ORDERED: LIDOCAINE/EPI 2% 1:200,00 (XYLOCAINE) 10 ML VIAL IJ ONE (01:07)
--- NOTE | 2020-03-27 01:30 | NUR ---
Pt positive void in the bed, still unable to move right leg but is requesting to move. ff 1 below, light rubra. pad and panties applied. pt transfer to ' and taken down to 309. Pt orientated to room. call light within reach.
--- NOTE | 2020-03-27 02:40 | NUR ---
Pt assisted to the bathroom. Positive void. [employer] performed. light rubra. pt ambulated back to bed. Denies any needs Will continue to monitor.
[2020-03-27] MEDS ORDERED: CATHETER FLUSH 10 ML SYR IV SCH (06:00)
[2020-03-27] MEDS ORDERED: PRENATAL VITAMIN 1 EA TAB PO SCH (07:00)
[2020-03-27] MEDS: DOCUSATE SODIUM 100 MG (COLACE) CAP PO SCH ×2 (08:39→20:58)
[2020-03-27] MEDS ORDERED: FERROUS SULF 325 MG (IRON) TAB PO SCH (09:00)
--- NOTE | 2020-03-27 10:00 | NUR ---
Shower set up for pt at this time, pt to shower independently at her convenience. Encouraged to call with needs or concerns.
[2020-03-27 10:24] LABS: BASOPHILS % (AUTO) 0 % (0-10); EOSINOPHILS # (AUTO) 0.1 10^3/uL (0.0-0.3); EOSINOPHILS % (AUTO) 0 % (0-10); HEMATOCRIT 27 % (35-52); HEMOGLOBIN 9.3 g/dL (11.5-16.0); LYMPHOCYTES # (AUTO) 1.8 10^3/uL (1.0-4.0); LYMPHOCYTES % (AUTO) 12 % (12-44); MEAN CORPUSCULAR HEMOGLOBIN 32 pg (25-34); MEAN CORPUSCULAR HGB CONC 34 g/dL (32-36); MEAN CORPUSCULAR VOLUME 93 fL (80-99); MEAN PLATELET VOLUME 11.6 fL (9.0-12.2); MONOCYTES # (AUTO) 1.2 10^3/uL (0.0-1.0); MONOCYTES % (AUTO) 8 % (0-12); NEUTROPHILS # (AUTO) 12.4 10^3/uL (1.8-7.8); NEUTROPHILS % (AUTO) 79 % (42-75); PLATELET COUNT 158 10^3/uL (130-400); WHITE BLOOD COUNT 15.6 10^3/uL (4.3-11.0)
--- NOTE | 2020-03-27 12:00 | Postpartum Progress Note ---
Note Note Day # 1 Subjective: Patient is without complaints. Ambulating, voiding. Tolerating a regular diet without nausea or vomiting. Normal lochia. Pain is well controlled with oral pain medications. Objective: Physical Exam: General - Alert and oriented, no apparent distress Abdomen - Soft, appropriately tender to palpation, non-distended, fundus firm at umbilicus Extremities - no edema, negative Per's bilaterally Assessment: PPD 1 NVD Acute blood loss anemia Plan: Routine care. Encourage breast feeding. Encourage ambulation. Ferrous sulfate supplementation. Plan for discharge tomorrow, late evening delivery Vitals - Labs Vital Signs - I&O Vital Signs Date Time Temp Pulse Resp B/P (MAP) Pulse Ox O2 Delivery O2 Flow Rate FiO2 03/27/20 08:40 37.2 97 18 93/50 (64) 98 Room Air 03/27/20 03:31 36.8 89 18 107/55 (72) Room Air 03/27/20 01:15 104 18 107/66 (80) Room Air 03/27/20 00:15 108 18 109/57 (74) Room Air 03/27/20 00:00 111 18 104/57 (73) Room Air 03/26/20 23:45 36.9 110 18 108/59 (75) Room Air 03/26/20 23:30 106 18 107/56 (73) Room Air 03/26/20 23:15 112 18 104/59 (74) Room Air 03/26/20 23:00 122 18 107/61 (76) Room Air 03/26/20 22:00 130 18 229/146 (173) Room Air 03/26/20 21:15 105 18 124/79 (94) Room Air 03/26/20 21:00 111 18 106/72 (83) Room Air 03/26/20 20:45 112 18 110/69 (83) Room Air 03/26/20 20:30 100 18 127/83 (98) Room Air 03/26/20 20:15 103 18 121/71 (88) Room Air 03/26/20 20:00 36.5 112 18 130/76 (94) Room Air 03/26/20 19:45 109 18 110/59 (76) Room Air 03/26/20 19:30 102 18 116/70 (85) Room Air 03/26/20 19:15 113 18 119/56 (77) Room Air 03/26/20 18:56 116 18 116/70 (85) Room Air 03/26/20 18:51 36.7 03/26/20 18:40 123 18 118/71 (87) Room Air 03/26/20 18:25 110 18 117/72 (87) Room Air 03/26/20 18:10 111 18 124/81 (95) Room Air 03/26/20 17:55 115 18 128/85 (99) Room Air 03/26/20 17:40 37.0 117 18 114/74 (87) Room Air 03/26/20 17:07 36.2 03/26/20 16:55 113 18 139/64 (89) Room Air 03/26/20 16:25 101 18 126/76 (93) Room Air 03/26/20 16:10 100 18 118/80 (93) Room Air 03/26/20 15:55 100 18 120/70 (87) Room Air 03/26/20 15:40 79 18 112/68 (83) Room Air 03/26/20 15:25 72 18 105/62 (76) Room Air 03/26/20 15:10 74 18 101/59 (73) Room Air 03/26/20 14:57 80 18 104/59 (74) Room Air 03/26/20 14:40 80 18 99/55 (70) Room Air 03/26/20 14:25 81 18 97/55 (69) Room Air 03/26/20 14:10 36.2 03/26/20 13:55 77 18 106/67 (80) Room Air 03/26/20 13:40 80 18 103/59 (74) Room Air 03/26/20 13:10 75 18 107/69 (82) Room Air 03/26/20 12:54 66 18 107/62 (77) Room Air 03/26/20 12:52 76 18 108/64 (79) Room Air 03/26/20 12:49 70 18 125/61 (82) Room Air 03/26/20 12:46 89 18 118/82 (94) Room Air 03/26/20 12:42 82 18 111/59 (76) Room Air 03/26/20 12:40 91 18 121/58 (79) Room Air 03/26/20 12:38 93 18 115/70 (85) Room Air 03/26/20 12:36 106 18 135/80 (98) Room Air 03/26/20 12:33 86 18 103/58 (73) Room Air 03/26/20 12:31 87 18 101/56 (71) 93 Room Air 03/26/20 12:24 83 18 118/60 (79) 95 Room Air 03/26/20 12:22 95 18 115/67 (83) Room Air 03/26/20 12:18 85 18 123/86 (98) 99 Room Air 03/26/20 12:15 93 18 119/64 (82) 99 Room Air I & O 03/27/20 07:00 Intake Total 3000 ml Balance 3000 ml Labs Laboratory Tests 03/27/20 09:25: White Blood Count 15.6H, Red Blood Count 2.94L, Hemoglobin 9.3#L, Hematocrit 27L , Mean Corpuscular Volume 93, Mean Corpuscular Hemoglobin 32, Mean Corpuscular Hemoglobin Concent 34, Red Cell Distribution Width 12.8, Platelet Count 158, Mean Platelet Volume 11.6, Immature Granulocyte % (Auto) 1, Neutrophils (%) (Auto) 79H, Lymphocytes (%) (Auto) 12, Monocytes (%) (Auto) 8, Eosinophils (%) (Auto) 0, Basophils (%) (Auto) 0, Neutrophils # (Auto) 12.4H, Lymphocytes # (Auto) 1.8, Monocytes # (Auto) 1.2H, Eosinophils # (Auto) 0.1, Basophils # (Auto) 0.0, Immature Granulocyte # (Auto) 0.1 MIRIAM MACK DO Mar 27, 2020 12:00
[2020-03-27] MEDS ORDERED: IBUP-844 PO (12:01)
[2020-03-27] MEDS ORDERED: FERR325T18 PO (12:01)
[2020-03-27] MEDS ORDERED: DCS100C PO (12:01)
[2020-03-27] MEDS ORDERED: DIBU30OI TOP (12:01)
[2020-03-27] MEDS ORDERED: ACHD5005 PO (12:01)
[2020-03-27] MEDS ORDERED: BENZ78AE5 TP (12:01)
--- NOTE | 2020-03-27 12:02 | Discharge Inst-Women's Service ---
Discharge Inst-Women's Serv Depart Medication/Instructions New, Converted or Re-Newed RX: RX on Chart Final Diagnosis PPD 2 NVD, Acute blood loss anemia Problems Reviewed?: Yes Consults/Follow Up Additional Follow Up: Yes Orders/Referrals Dr. Mack in 6 weeks Activity Activity: Activity as Tolerated Driving Instructions: No Driving for 1 Week NO SMOKING: NO SMOKING Nothing Inside Vagina: No Douching, No [place], No Tampons Diet Discharge Diet: No Restrictions Symptoms to Report to : Bleeding Excessive, Pain Increased, Fever Over 101 Degrees F, Vaginal Bleeding Increase, Questions/Concerns For Any Problems or Questions: Contact Your Physician MIRIAM MACK DO Mar 27, 2020 12:02
--- NOTE | 2020-03-27 15:39 | Anesthesia-Regional Post-Op ---
Regional Patient Condition Mental Status: Alert, Oriented x3 Circulation: Same as Pre-Op Headache: Absent Sensation: Full Recovery Motor Block: Absent Post Op Complications Complications None Follow Up Care/Instructions Patient Instructions None needed. Anesthesia/Patient Condition Patient is doing well, no complaints, stable vital signs, no apparent adverse anesthesia problems. No complications reported per nursing. ZOË SMALLWOOD CRNA Mar 27, 2020 15:39
--- NOTE | 2020-03-27 23:05 | NUR ---
Discharge instructions reviewed with pt. Pt. states understanding of instructions. Questions answered at this time.
--- NOTE | 2020-03-27 23:45 | NUR ---
Pt. walked down to car with nursery nurse and . Pt. walked without assistance. No s/s of distress.
== END 2020-03-27 23:45 | disposition home or self-care (01) | DRG 806 ==
LOC: LDRP 06:09
PROVIDERS: ADMIT Obstetrics & Gynecology; ATTEND Obstetrics & Gynecology
PROC: 10E0XZZ Delivery of Products of Conception, External Approach (ICD-10-PCS; principal; 2020-03-26)
PROC: 0W8NXZZ Division of Female Perineum, External Approach (ICD-10-PCS; 2020-03-26)
DX: O80 Encounter for full-term uncomplicated delivery (principal); D62 Acute posthemorrhagic anemia; Z37.0 Single live birth; Z3A.39 39 weeks gestation of pregnancy; O90.81 Anemia of the puerperium
CPT/HCPCS: 36415; 85025; 86850; 86900; 86901; 87635